=== PATIENT | male | born 1980 | race Hispanic/Latino ===

== ENCOUNTER 2018-06-01 12:09 | Emergency (ER) | payer OTHER ==
[2018-06-01 12:31] VITALS: O2SAT 96
--- NOTE | 2018-06-01 13:59 | C.PDOC ---
History Of Present Illness 37 year old male presents to the ED requesting heroin detox. Patient states that he has been using heroin intranasally for "a long time." After trying crystal meth four days ago, patient states he was unable to sleep, became increasingly agitated and was unable to eat/drink for three days. Patient felt better after smoking marijuana yesterday. He presents to the ED requesting heroin detox. Otherwise, he denies suicidal/homicidal ideation at this time. Time Seen by Provider: 06/01/18 13:43 Chief Complaint (Nursing): Substance Abuse History Per: Patient History/Exam Limitations: no limitations Onset/Duration Of Symptoms: Waxing/Waning Current Symptoms Are (Timing): Still Present Suicide/Self Injury Attempted (Context): None Modifying Factor(s): Marijuana, Other (heroin, crystal meth ) Associated Symptoms: denies: Suicidal Thoughts, Suicidal Plan Involuntary Hold By: None Recent travel outside of the [place]: No Additional History Per: Patient Past Medical History Reviewed: Historical Data, Nursing Documentation, Vital Signs Vital Signs: Last Vital Signs Temp 98.5 F 06/01/18 12:30 Pulse 114 H 06/01/18 12:30 Resp 20 06/01/18 12:30 BP 128/82 06/01/18 12:30 Pulse Ox 96 06/01/18 12:30 - Medical History PMH: No Chronic Diseases Surgical History: No Surg Hx Family History: States: Unknown Family Hx - Social History Hx Alcohol Use: No Hx Substance Use: Yes - Immunization History Hx Tetanus Toxoid Vaccination: No Hx Influenza Vaccination: No Hx Pneumococcal Vaccination: No Review Of Systems Psych: Positive for: Other (heroin detox ). Negative for: Suicidal ideation Physical Exam - Physical Exam Appears: Non-toxic, No Acute Distress Skin: Normal Color, Warm, Dry, Other (multiple scratches diffusely. no active bleeding ) Head: Atraumatic, Normacephalic Eye(s): bilateral: Normal Inspection Oral Mucosa: Moist Neck: Supple Chest: Symmetrical, No Deformity, No Tenderness Cardiovascular: Rhythm Regular Respiratory: No Accessory Muscle Use Extremity: Normal ROM Neurological/Psych: Oriented x3, Normal Speech, Normal Cognition ED Course And Treatment O2 Sat by Pulse Oximetry: 96 (on RA ) Pulse Ox Interpretation: Normal Progress Note: Patient was evaluated by agriculture worker. Patient if informed that there are no detox beds available at this time, and is he provided with a list of detox resources for further inquiry. Disposition - Disposition Disposition: HOME/ ROUTINE Disposition Time: 13:58 Condition: STABLE Instructions: Polysubstance Abuse (DC) Forms: [employer] (Nepali) - Clinical Impression Clinical Impression: Polysubstance abuse - Scribe Statement The provider has reviewed the documentation as recorded by the Scribe (Radha Szymanski) Provider Attestation: All medical record entries made by the Scribe were at my direction and personally dictated by me. I have reviewed the chart and agree that the record accurately reflects my personal performance of the history, physical exam, medical decision making, and the department course for this patient. I have also personally directed, reviewed, and agree with the discharge instructions and disposition.
[2018-06-01 14:21] VITALS: BP 115/82; PULSE 99; RESP 16; TEMP 98.1
== END 2018-06-01 14:06 | disposition home or self-care (01) ==
LOC: C.ER 12:09
DX: F19.10 Other psychoactive substance abuse, uncomplicated (principal)